=== PATIENT | male | born 1970 | race African-American/Black ===

== ENCOUNTER 2016-09-09 08:41 | Inpatient (IN) | payer OTHER ==
[~2016-09-09] VITALS: Ht 170.2 cm; Wt 80.7 kg
[~2016-09-09 08:41] MED LIST: ASPI81TA2 PO; ATOR20TA58 PO; HYDR25TA9 PO; NABU500T PO
[2016-09-09] MEDS ORDERED: IV NORMAL SALINE 1000ML BAG 1,000 ML IV SCH (09:23)
[2016-09-09] MEDS ORDERED: FENTANYL PF 100 MCG/2 ML VIAL. IV PRN (09:30)
[2016-09-09] MEDS ORDERED: ONDANSETRON PF 4 MG/2 ML VIAL. IV ONE (09:30)
[2016-09-09] MEDS ORDERED: FAMOTIDINE 20 MG/2 ML VIAL IVP ONE (09:30)
--- NOTE | 2016-09-09 09:38 | EKG ---
[facility] [address] [place] [address] Test Date: 2016-09-09 Test Time: 09:34:43 Pat Name: YESICA MOCTEZUMA Department: Room: Gender: M Project Portfolio Analyst: : 1970 Requested By: ESTHER JAMES Order Number: [id number] Reading MD: Tammy Gomez Measurements Intervals [place] Rate: 93 P: AR: QRS: 48 QRSD: 86 T: 26 QT: 360 QTc: 450 Interpretive Statements SINUS RHYTHM QRS(T) CONTOUR ABNORMALITY CONSIDER ANTEROLATERAL MYOCARDIAL DAMAGE Electronically Signed On 09-10-2016 20:17:12 CDT by Tammy Gomez
--- NOTE | 2016-09-09 09:54 | PHYS DOC ---
Past Medical History Past Medical History: High Cholesterol, Hypertension, Pancreatitis, Seizure, Other Additional Past Medical Histor: high cholesterol Past Surgical History: Cholecystectomy Alcohol Use: Heavy Additional Information: 6-12 per day Drug Use: None Adult General Chief Complaint Chief Complaint: ABDOMINAL PAIN HPI HPI Patient is a 46 year old male who presents with complaint of abdominal pain and vomiting that started yesterday. Patient states that his symptoms have progressively worsened since onset. Patient states that his pain is 10 out of 10 currently. Patient describes his pain as sharp. Patient has not been able to tolerate solids or liquids. Patient has history of pancreatitis. Patient had his gallbladder removed in 2014, however he has still had intermittent issues with pain. Patient does admit to daily alcohol use. When asked how much the patient drinks daily he states "too much." Patient has not taken any medications to help with his symptoms. Review of Systems Review of Systems Constitutional: Denies fever or chills [] Eyes: Denies change in visual acuity, redness, or eye pain [] HENT: Denies nasal congestion or sore throat [] Respiratory: Denies cough or shortness of breath [] Cardiovascular: Chest pain [] GI: Abdominal pain, nausea, vomiting, denies bloody stools or diarrhea [] : Denies dysuria or hematuria [] Musculoskeletal: Denies back pain or joint pain [] Integument: Denies rash or skin lesions [] Neurologic: Denies headache, focal weakness or sensory changes [] Current Medications Current Medications Current Medications Medications (Trade) Dose Ordered Sig/Phil Start Time Stop Time Status Last Admin Dose Admin Famotidine (Pepcid) 20 mg 1X ONCE 09/09/16 09:30 09/09/16 09:31 DC 09/09/16 09:56 20 MG Fentanyl Citrate 50 mcg 50 mcg PRN Q15MIN PRN 09/09/16 09:30 09/10/16 09:29 09/09/16 09:56 50 MCG Ondansetron HCl (Zofran) 4 mg 1X ONCE 09/09/16 09:30 09/09/16 09:31 DC 09/09/16 09:56 4 MG Sodium Chloride (Iv Sodium Chloride 0.9% 1000ml Bag) 1,000 ml @ 1,000 mls/hr Q1H 09/09/16 09:23 09/09/16 10:22 DC 09/09/16 09:57 1,000 MLS/HR Allergies Allergies Allergies Coded Allergies Type Severity Reaction Last Updated Verified No Known Drug Allergies 09/04/13 No Physical Exam Physical Exam Constitutional: Alert, afebrile, appears in mild to moderate discomfort. [] HENT: Normocephalic, atraumatic, bilateral external ears normal, oropharynx moist, no oral exudates, nose normal. [] Eyes: PERRLA, EOMI, conjunctiva normal, no discharge. [] Neck: Normal range of motion, no tenderness, supple, no stridor. [] Cardiovascular: Tachycardia, regular rhythm, no murmur [] Lungs & Thorax: Bilateral breath sounds clear to auscultation [] Abdomen: Bowel sounds normal, soft, epigastric tenderness to palpation with guarding, no rebound tenderness, no masses, no pulsatile masses. [] Skin: Warm, dry, no erythema, no rash. [] Back: No tenderness, no CVA tenderness. [] Extremities: No tenderness, no cyanosis, no clubbing, ROM intact, no edema. [] Neurologic: Alert and oriented X 3, normal motor function, normal sensory function, no focal deficits noted. [] Current Patient Data Vital Signs Vital Signs Date Time Temp Pulse Resp B/P Pulse Ox O2 Delivery O2 Flow Rate FiO2 09/09/16 11:00 104 16 181/116 99 Room Air 09/09/16 09:15 98.4 98.4 Lab Values Laboratory Tests Test 09/09/16 10:00 White Blood Count 5.5x10^3/uL (4.0-11.0) Red Blood Count 5.70x10^6/uL (4.30-5.70) Hemoglobin 15.7g/dL (13.0-17.5) Hematocrit 47.5% (39.0-53.0) Mean Corpuscular Volume 83fL (79-100) Mean Corpuscular Hemoglobin 28pg (25-35) Mean Corpuscular Hemoglobin Concent 33g/dL (31-37) Red Cell Distribution Width 15.5% (11.5-14.5) H Platelet Count 192x10^3/uL (140-400) Neutrophils (%) (Auto) 69% (31-73) Lymphocytes (%) (Auto) 23% (24-48) L Monocytes (%) (Auto) 7% (0-9) Eosinophils (%) (Auto) 0% (0-3) Basophils (%) (Auto) 1% (0-3) Neutrophils # (Auto) 3.8x10^3uL (1.8-7.7) Lymphocytes # (Auto) 1.2x10^3/uL (1.0-4.8) Monocytes # (Auto) 0.4x10^3/uL (0.0-1.1) Eosinophils # (Auto) 0.0x10^3/uL (0.0-0.7) Basophils # (Auto) 0.0x10^3/uL (0.0-0.2) Sodium Level 140mmol/L (136-145) Potassium Level 4.5mmol/L (3.5-5.1) Chloride Level 100mmol/L (98-107) Carbon Dioxide Level 28mmol/L (21-32) Anion Gap 12 (6-14) Blood Urea Nitrogen 12mg/dL (8-26) Creatinine 1.2mg/dL (0.7-1.3) Estimated GFR (Cockcroft-Gault) 79.6 BUN/Creatinine Ratio 10 (6-20) Glucose Level 131mg/dL (70-99) H Calcium Level 9.7mg/dL (8.5-10.1) Total Bilirubin 1.6mg/dL (0.2-1.0) H Aspartate Amino Transferase (AST) 413U/L (15-37) H Alanine Aminotransferase (ALT) 277U/L (16-63) H Alkaline Phosphatase 115U/L (46-116) Creatine Kinase 329U/L (39-308) H Creatine Kinase MB (Mass) 1.6ng/mL (0.0-3.6) Creatine Kinase MB Relative Index 0.5% (0-4) Troponin I Quantitative < 0.017ng/mL (0.000-0.055) Total Protein 8.0g/dL (6.4-8.2) Albumin 4.0g/dL (3.4-5.0) Albumin/Globulin Ratio 1.0 (1.0-1.7) Lipase 6127U/L (73-393) H Laboratory Tests 09/09/16 10:00 Laboratory Tests 09/09/16 10:00 EKG EKG Interpreted by me: Heart rate 93, sinus tachycardia, normal axis, normal intervals, no acute ST/T-wave abnormalities present [] Radiology/Procedures Radiology/Procedures [facility] [address] [place] [address] IMAGING REPORT Signed PATIENT: YESICA MOCTEZUMA ACCOUNT: [id number] : 1970 LOCATION: ER AGE: 46 SEX: M EXAM STATUS: REG ER ORD. PHYSICIAN: ESTHER JAMES MD REASON: abdominal pain, vomiting, patient states started yesterday PROCEDURE: ACUTE ABDOMEN SERIES Acute abdomen series with chest, 3 views, 09/09/2016: History: Abdominal pain and vomiting The abdominal gas pattern is unremarkable without evidence of obstruction. No free air is seen in the abdomen. There is no evidence of organomegaly. Surgical clips are present in the right upper quadrant. Lower pelvic calcifications are compatible with phleboliths. The heart size is normal. The lungs are clear. There is no evidence of pleural fluid. IMPRESSION: No acute abdominal abnormality is detected. DICTATED and SIGNED BY: KRISTAN LOPEZ MD DATE: 09/09/16 1000 CC: ESTHER JAMES MD; NO PCP ~ [] Course & Med Decision Making Course & Med Decision Making Pertinent Labs and Imaging studies reviewed. (See chart for details) Patient was given IV fluids, fentanyl, Pepcid, and Zofran. Despite treatment, the patient continues to complain of severe pain at this time. The patient's lipase was found to be above 6000. The patient's source of pancreatitis is likely due to daily heavy alcohol consumption which the patient admitted to. The patient will be admitted for IV fluids, symptomatic control, and bowel rest. Patient admitted to Dr. Kearns. Dragon Disclaimer Dragon Disclaimer This electronic medical record was generated, in whole or in part, using a voice recognition dictation system. Departure Departure Impression: Primary Impression: Acute pancreatitis Disposition: ADMITTED INPATIENT Admitting Physician: Jostin Kearns Condition: GUARDED Referrals: NO PCP (PCP) Problem Qualifiers Primary Impression: Acute pancreatitis Pancreatitis type: alcohol induced Acute pancreatitis complication: unspecified Qualified Code: K85.20 - Alcohol induced acute pancreatitis without necrosis or infection ESTHER JAMES MD Sep 09, 2016 09:54
--- NOTE | 2016-09-09 10:04 | RAD ---
Acute abdomen series with chest, 3 views, 09/09/2016: History: Abdominal pain and vomiting The abdominal gas pattern is unremarkable without evidence of obstruction. No free air is seen in the abdomen. There is no evidence of organomegaly. Surgical clips are present in the right upper quadrant. Lower pelvic calcifications are compatible with phleboliths. The heart size is normal. The lungs are clear. There is no evidence of pleural fluid. IMPRESSION: No acute abdominal abnormality is detected.
[2016-09-09 10:07] LABS: BASO % 1 % (0-3); EOS % 0 % (0-3); HEMATOCRIT 47.5 % (39.0-53.0); HEMOGLOBIN 15.7 g/dL (13.0-17.5); LYMPH # 1.2 x10^3/uL (1.0-4.8); LYMPH % 23 % (24-48); MEAN CORPUSCULAR HEMOGLOBIN 28 pg (25-35); MEAN CORPUSCULAR HGB CONC 33 g/dL (31-37); MEAN CORPUSCULAR VOLUME 83 fL (79-100); MONO % 7 % (0-9); NEUT % 69 % (31-73); PLATELET COUNT 192 x10^3/uL (140-400); RED CELL DISTRIBUTION WIDTH 15.5 % (11.5-14.5); WHITE BLOOD COUNT 5.5 x10^3/uL (4.0-11.0)
[2016-09-09 10:23] LABS: CALCIUM 9.7 mg/dL (8.5-10.1); CREATININE 1.2 mg/dL (0.7-1.3); GFR 79.6; POTASSIUM 4.5 mmol/L (3.5-5.1)
[2016-09-09 10:30] LABS: TOTAL BILIRUBIN 1.6 mg/dL (0.2-1.0)
[2016-09-09 10:37] LABS: CKMB INDEX 0.5 % (0-4); CKMB MASS 1.6 ng/mL (0.0-3.6)
[2016-09-09] MEDS ORDERED: ACETAMINOPHEN 325 MG TABLET. PO PRN ×2 (12:00→16:00)
[2016-09-09] MEDS ORDERED: ONDANSETRON PF 4 MG/2 ML VIAL. IV PRN ×2 (12:00→16:00)
[2016-09-09] MEDS: LORAZEPAM 1 MG TABLET. PO SCH ×2 (12:00→17:18)
[2016-09-09] MEDS: HYDROMORPHONE 2 MG/ML VIAL. IV PRN ×3 (12:09→19:39)
[2016-09-09] MEDS: IV NORMAL SALINE 1000ML BAG 1,000 ML IV SCH ×2 (12:10→19:39)
[2016-09-09 12:16] LABS: BILIRUBIN,URINE SMALL (NEG); GLUCOSE,URINE NEGATIVE (NEG); NITRITE,URINE NEGATIVE (NEG); PH,URINE 5.5
[2016-09-09 12:31] LABS: BACTERIA,URINE 0 /HPF (0-FEW); RBC,URINE 0 /HPF (0-2); SQUAMOUS EPITHELIAL CELL,UR FEW /LPF; WBC,URINE 0 /HPF (0-4)
[2016-09-09] MEDS: FOLIC ACID 1 MG TABLET PO SCH (13:00)
[2016-09-09] MEDS: THIAMINE 100 MG TABLET. PO SCH (13:00)
[2016-09-09] MEDS: MULTIVITAMIN with MINERAL TABLET. PO SCH (13:00)
--- NOTE | 2016-09-09 13:02 | ACF ---
Admission Forms Criteria PANCREATITIS Clinical Indications for Admission to Inpatient Care (Place 'X' for any and all applicable criteria): Admission is indicated for ANY ONE of the following (1)(2)(3)(4): [X]I. Acute pancreatitis[A] as indicated by 2 or more of the following: [X]a) Abdominal pain (eg, epigastric, left upper quadrant) [X]b) Serum amylase or serum lipase greater than 3 times the upper limit of normal [ ]c) Characteristic findings from abdominal imaging (eg, pancreatic inflammation, pancreatic necrosis, peripancreatic fluid collection)[B] [ ]II. Pancreatitis (acute or chronic ) requiring inpatient care as indicated by 1 or more of the following : [ ]a) Inability to maintain oral hydration Hypoxemia [ ]b) Evidence of infection (eg, fever, peripancreatic abscess) [ ]c) Severe pain requiring acute inpatient management [ ]d) Hemodynamic instability [ ]e) Hypoxemia [ ]f) Acute renal failure [ ]g) Severe electrolyte abnormalities Extended stay beyond goal length of stay may be needed for (1)(11) [ ]a) Severe acute pancreatitis (10)(19) [ ]b) Persistent symptoms, ascites, or pleural effusion [ ]c) Abdominal compartment syndrome (10) [ ]d) Late complications [ ]e) Acute renal failure (27) [ ]f) Gallstones in gallbladder The original [employer] content created by [employer] has been revised. The portions of the content which have been revised are identified through the use of italic text or in bold,and [facility] has neither reviewed nor approved the modified material.All other unmodified content is copyright [employer]. Please see references footnoted in the original [employer] edition 2016 Admission Criteria Met?: Yes PHILIPP ACEVES Sep 09, 2016 13:02
[2016-09-09 14:10] VITALS: BP 144/97
[2016-09-09] MEDS ORDERED: hydrALAZINE 20 MG/ML VIAL. IVP PRN (16:00)
[2016-09-09] MEDS ORDERED: ALBUTEROL SULFATE 2.5 MG/3 ML NEBU. NEB PRN (16:00)
--- NOTE | 2016-09-09 16:14 | PDOC1 ---
History and Physical Past Medical History Past Medical History Past Medical History: High Cholesterol, Hypertension, Pancreatitis, Seizure, high cholesterol Past Surgical History: Cholecystectomy Alcohol Use: Heavy Additional Information: 6-12 per day Drug Use: None FH: Unknown Cardiovascular: HTN, Hyperlipidemia Pulmonary: No pertinent hx GI: No pertinent hx Heme/Onc: No pertinent hx Hepatobiliary: No pertinent hx Psych: No pertinent hx Rheumatologic: No pertinent hx Infectious disease: No pertinent hx Endocrine: No pertinent hx Past Surgical History Past Surgical History: No pertinent history Family History Family History: Other Social History ALCOHOL: social Drugs: None Current Problem List Problem List Problems Medical Problems: (1) Acute pancreatitis Status: Acute (2) Pancreatitis Status: Acute Current Medications Current Medications Current Medications Medications (Trade) Dose Ordered Sig/Phil Start Time Stop Time Status Last Admin Dose Admin Acetaminophen (Tylenol) 325 mg PRN Q6HRS PRN 09/09/16 16:00 Acetaminophen/ Hydrocodone Bitart (Lortab 5/325) 1 tab PRN Q6HRS PRN 09/09/16 16:00 Albuterol Sulfate (Ventolin Neb Soln) 2.5 mg PRN Q4HRS PRN 09/09/16 16:00 Famotidine (Pepcid) 20 mg 1X ONCE 09/09/16 09:30 09/09/16 09:31 DC 09/09/16 09:56 20 MG Fentanyl Citrate (Fentanyl 2ml Vial) 50 mcg PRN Q15MIN PRN 09/09/16 09:30 09/10/16 09:29 09/09/16 09:56 50 MCG Folic Acid (Folic Acid) 1 mg DAILY 09/09/16 13:00 Hydralazine HCl (Apresoline) 10 mg PRN Q4HRS PRN 09/09/16 16:00 Hydromorphone HCl (Dilaudid) 1 mg PRN Q2HR PRN 09/09/16 12:00 09/09/16 14:43 1 MG Lorazepam (Ativan) 2 mg Q6H 09/09/16 12:00 09/10/16 18:01 Multivitamins (Thera M Plus) 1 tab DAILY 09/09/16 13:00 Ondansetron HCl (Zofran) 4 mg PRN Q8HRS PRN 09/09/16 16:00 Ondansetron HCl 4 mg 4 mg PRN Q8HRS PRN 09/09/16 12:00 Sodium Chloride (Iv Sodium Chloride 0.9% 1000ml Bag) 1,000 ml @ 150 mls/hr Q6H40M 09/09/16 12:30 09/10/16 12:29 09/09/16 12:10 150 MLS/HR Thiamine HCl (Vitamin B-1) 100 mg DAILY 09/09/16 13:00 Allergies Allergies Allergies Coded Allergies Type Severity Reaction Last Updated Verified No Known Drug Allergies 09/04/13 No ROS Review of System CONSTITUTIONAL: No fever or chills EYES: No recent changes SKIN: No rash or itching CARDIOVASCULAR: No chest pain, syncope, palpitations, or edema RESPIRATORY: No SOB or cough GASTROINTESTINAL: nausea, vomiting or abdominal pain NEUROLOGICAL: No headaches or weakness ENDOCRINE: No cold or heat intolerance GENITOURINARY: No urgency or frequency of urination MUSCULOSKELETAL: No back pain or joint pain LYMPHATICS: No enlarged lymph nodes PSYCHIATRIC: No anxiety or depression Physical Exam Physical Exam GEN.: No apparent distress. Alert and oriented. HEENT: Head is normocephalic, atraumatic NECK: Supple. no jvd LUNGS: Clear to auscultation. normal airflow HEART: RRR, S1, S2 present. Peripheral pulses intact ABDOMEN: Soft, epi tender. Positive bowel sounds. EXTREMITIES: Without any cyanosis. NEUROLOGIC: Normal speech, normal tone PSYCHIATRIC: Normal affect, normal mood. SKIN: No ulcerations Vitals Vitals Vital Signs Date Time Temp Pulse Resp B/P Pulse Ox O2 Delivery O2 Flow Rate FiO2 09/09/16 15:13 Room Air 09/09/16 14:10 98.1 85 20 144/97 96 98.1 Labs Labs Laboratory Tests Test 09/09/16 10:00 09/09/16 11:55 White Blood Count 5.5x10^3/uL (4.0-11.0) Red Blood Count 5.70x10^6/uL (4.30-5.70) Hemoglobin 15.7g/dL (13.0-17.5) Hematocrit 47.5% (39.0-53.0) Mean Corpuscular Volume 83fL (79-100) Mean Corpuscular Hemoglobin 28pg (25-35) Mean Corpuscular Hemoglobin Concent 33g/dL (31-37) Red Cell Distribution Width 15.5% (11.5-14.5) Platelet Count 192x10^3/uL (140-400) Neutrophils (%) (Auto) 69% (31-73) Lymphocytes (%) (Auto) 23% (24-48) Monocytes (%) (Auto) 7% (0-9) Eosinophils (%) (Auto) 0% (0-3) Basophils (%) (Auto) 1% (0-3) Neutrophils # (Auto) 3.8x10^3uL (1.8-7.7) Lymphocytes # (Auto) 1.2x10^3/uL (1.0-4.8) Monocytes # (Auto) 0.4x10^3/uL (0.0-1.1) Eosinophils # (Auto) 0.0x10^3/uL (0.0-0.7) Basophils # (Auto) 0.0x10^3/uL (0.0-0.2) Sodium Level 140mmol/L (136-145) Potassium Level 4.5mmol/L (3.5-5.1) Chloride Level 100mmol/L (98-107) Carbon Dioxide Level 28mmol/L (21-32) Anion Gap 12 (6-14) Blood Urea Nitrogen 12mg/dL (8-26) Creatinine 1.2mg/dL (0.7-1.3) Estimated GFR (Cockcroft-Gault) 79.6 BUN/Creatinine Ratio 10 (6-20) Glucose Level 131mg/dL (70-99) Calcium Level 9.7mg/dL (8.5-10.1) Total Bilirubin 1.6mg/dL (0.2-1.0) Aspartate Amino Transf (AST/SGOT) 413U/L (15-37) Alanine Aminotransferase (ALT/SGPT) 277U/L (16-63) Alkaline Phosphatase 115U/L (46-116) Creatine Kinase 329U/L (39-308) Creatine Kinase MB (Mass) 1.6ng/mL (0.0-3.6) Creatine Kinase MB Relative Index 0.5% (0-4) Troponin I Quantitative < 0.017ng/mL (0.000-0.055) Total Protein 8.0g/dL (6.4-8.2) Albumin 4.0g/dL (3.4-5.0) Albumin/Globulin Ratio 1.0 (1.0-1.7) Lipase 6127U/L (73-393) Urine Collection Type Unknown Urine Color [place] Urine Clarity Clear Urine pH 5.5 Urine Specific [place] >=1.030 Urine Protein mg/dL (NEG-TRACE) Urine Glucose (UA) Negativemg/dL (NEG) Urine Ketones (Stick) >=80mg/dL (NEG) Urine Blood (NEG) Urine Nitrite Negative (NEG) Urine Bilirubin Small (NEG) Urine Urobilinogen Dipstick 1.0mg/dL (0.2 mg/dL) Urine Leukocyte Esterase Negative (NEG) Urine RBC 0/HPF (0-2) Urine WBC 0/HPF (0-4) Urine Squamous Epithelial Cells Few/LPF Urine Bacteria 0/HPF (0-FEW) Urine Mucus Marked/LPF Laboratory Tests Test 09/09/16 10:00 09/09/16 11:55 White Blood Count 5.5x10^3/uL (4.0-11.0) Red Blood Count 5.70x10^6/uL (4.30-5.70) Hemoglobin 15.7g/dL (13.0-17.5) Hematocrit 47.5% (39.0-53.0) Mean Corpuscular Volume 83fL (79-100) Mean Corpuscular Hemoglobin 28pg (25-35) Mean Corpuscular Hemoglobin Concent 33g/dL (31-37) Red Cell Distribution Width 15.5% (11.5-14.5) Platelet Count 192x10^3/uL (140-400) Neutrophils (%) (Auto) 69% (31-73) Lymphocytes (%) (Auto) 23% (24-48) Monocytes (%) (Auto) 7% (0-9) Eosinophils (%) (Auto) 0% (0-3) Basophils (%) (Auto) 1% (0-3) Neutrophils # (Auto) 3.8x10^3uL (1.8-7.7) Lymphocytes # (Auto) 1.2x10^3/uL (1.0-4.8) Monocytes # (Auto) 0.4x10^3/uL (0.0-1.1) Eosinophils # (Auto) 0.0x10^3/uL (0.0-0.7) Basophils # (Auto) 0.0x10^3/uL (0.0-0.2) Sodium Level 140mmol/L (136-145) Potassium Level 4.5mmol/L (3.5-5.1) Chloride Level 100mmol/L (98-107) Carbon Dioxide Level 28mmol/L (21-32) Anion Gap 12 (6-14) Blood Urea Nitrogen 12mg/dL (8-26) Creatinine 1.2mg/dL (0.7-1.3) Estimated GFR (Cockcroft-Gault) 79.6 BUN/Creatinine Ratio 10 (6-20) Glucose Level 131mg/dL (70-99) Calcium Level 9.7mg/dL (8.5-10.1) Total Bilirubin 1.6mg/dL (0.2-1.0) Aspartate Amino Transf (AST/SGOT) 413U/L (15-37) Alanine Aminotransferase (ALT/SGPT) 277U/L (16-63) Alkaline Phosphatase 115U/L (46-116) Creatine Kinase 329U/L (39-308) Creatine Kinase MB (Mass) 1.6ng/mL (0.0-3.6) Creatine Kinase MB Relative Index 0.5% (0-4) Troponin I Quantitative < 0.017ng/mL (0.000-0.055) Total Protein 8.0g/dL (6.4-8.2) Albumin 4.0g/dL (3.4-5.0) Albumin/Globulin Ratio 1.0 (1.0-1.7) Lipase 6127U/L (73-393) Urine Collection Type Unknown Urine Color [place] Urine Clarity Clear Urine pH 5.5 Urine Specific [place] >=1.030 Urine Protein mg/dL (NEG-TRACE) Urine Glucose (UA) Negativemg/dL (NEG) Urine Ketones (Stick) >=80mg/dL (NEG) Urine Blood (NEG) Urine Nitrite Negative (NEG) Urine Bilirubin Small (NEG) Urine Urobilinogen Dipstick 1.0mg/dL (0.2 mg/dL) Urine Leukocyte Esterase Negative (NEG) Urine RBC 0/HPF (0-2) Urine WBC 0/HPF (0-4) Urine Squamous Epithelial Cells Few/LPF Urine Bacteria 0/HPF (0-FEW) Urine Mucus Marked/LPF VTE Prophylaxis Ordered VTE Prophylaxis Devices: No VTE Pharmacological Prophylaxi: No SAMEER REYES MD Sep 09, 2016 16:14
[2016-09-09] MEDS: METOPROLOL TARTRATE 5 MG/5 ML VIAL. IVP SCH (17:20)
--- NOTE | 2016-09-09 17:59 | PDOC ---
G I PROGRESS NOTE Reason for Follow-up abd pain/pancreatitis Subjective pain improving/increasing appetite Physical Exam Lungs clear CV S1 S2 ABD +BS, soft, +epigastric tenderness Review of Relevant I have reviewed the following items jey (where applicable) has been applied. Labs Laboratory Tests Test 09/09/16 10:00 09/09/16 11:55 White Blood Count 5.5x10^3/uL (4.0-11.0) Red Blood Count 5.70x10^6/uL (4.30-5.70) Hemoglobin 15.7g/dL (13.0-17.5) Hematocrit 47.5% (39.0-53.0) Mean Corpuscular Volume 83fL (79-100) Mean Corpuscular Hemoglobin 28pg (25-35) Mean Corpuscular Hemoglobin Concent 33g/dL (31-37) Red Cell Distribution Width 15.5% (11.5-14.5) Platelet Count 192x10^3/uL (140-400) Neutrophils (%) (Auto) 69% (31-73) Lymphocytes (%) (Auto) 23% (24-48) Monocytes (%) (Auto) 7% (0-9) Eosinophils (%) (Auto) 0% (0-3) Basophils (%) (Auto) 1% (0-3) Neutrophils # (Auto) 3.8x10^3uL (1.8-7.7) Lymphocytes # (Auto) 1.2x10^3/uL (1.0-4.8) Monocytes # (Auto) 0.4x10^3/uL (0.0-1.1) Eosinophils # (Auto) 0.0x10^3/uL (0.0-0.7) Basophils # (Auto) 0.0x10^3/uL (0.0-0.2) Sodium Level 140mmol/L (136-145) Potassium Level 4.5mmol/L (3.5-5.1) Chloride Level 100mmol/L (98-107) Carbon Dioxide Level 28mmol/L (21-32) Anion Gap 12 (6-14) Blood Urea Nitrogen 12mg/dL (8-26) Creatinine 1.2mg/dL (0.7-1.3) Estimated GFR (Cockcroft-Gault) 79.6 BUN/Creatinine Ratio 10 (6-20) Glucose Level 131mg/dL (70-99) Calcium Level 9.7mg/dL (8.5-10.1) Total Bilirubin 1.6mg/dL (0.2-1.0) Aspartate Amino Transf (AST/SGOT) 413U/L (15-37) Alanine Aminotransferase (ALT/SGPT) 277U/L (16-63) Alkaline Phosphatase 115U/L (46-116) Creatine Kinase 329U/L (39-308) Creatine Kinase MB (Mass) 1.6ng/mL (0.0-3.6) Creatine Kinase MB Relative Index 0.5% (0-4) Troponin I Quantitative < 0.017ng/mL (0.000-0.055) Total Protein 8.0g/dL (6.4-8.2) Albumin 4.0g/dL (3.4-5.0) Albumin/Globulin Ratio 1.0 (1.0-1.7) Lipase 6127U/L (73-393) Urine Collection Type Unknown Urine Color Logan Urine Clarity Clear Urine pH 5.5 Urine Specific Costa >=1.030 Urine Protein mg/dL (NEG-TRACE) Urine Glucose (UA) Negativemg/dL (NEG) Urine Ketones (Stick) >=80mg/dL (NEG) Urine Blood (NEG) Urine Nitrite Negative (NEG) Urine Bilirubin Small (NEG) Urine Urobilinogen Dipstick 1.0mg/dL (0.2 mg/dL) Urine Leukocyte Esterase Negative (NEG) Urine RBC 0/HPF (0-2) Urine WBC 0/HPF (0-4) Urine Squamous Epithelial Cells Few/LPF Urine Bacteria 0/HPF (0-FEW) Urine Mucus Marked/LPF Laboratory Tests Test 09/09/16 10:00 09/09/16 11:55 White Blood Count 5.5x10^3/uL (4.0-11.0) Red Blood Count 5.70x10^6/uL (4.30-5.70) Hemoglobin 15.7g/dL (13.0-17.5) Hematocrit 47.5% (39.0-53.0) Mean Corpuscular Volume 83fL (79-100) Mean Corpuscular Hemoglobin 28pg (25-35) Mean Corpuscular Hemoglobin Concent 33g/dL (31-37) Red Cell Distribution Width 15.5% (11.5-14.5) Platelet Count 192x10^3/uL (140-400) Neutrophils (%) (Auto) 69% (31-73) Lymphocytes (%) (Auto) 23% (24-48) Monocytes (%) (Auto) 7% (0-9) Eosinophils (%) (Auto) 0% (0-3) Basophils (%) (Auto) 1% (0-3) Neutrophils # (Auto) 3.8x10^3uL (1.8-7.7) Lymphocytes # (Auto) 1.2x10^3/uL (1.0-4.8) Monocytes # (Auto) 0.4x10^3/uL (0.0-1.1) Eosinophils # (Auto) 0.0x10^3/uL (0.0-0.7) Basophils # (Auto) 0.0x10^3/uL (0.0-0.2) Sodium Level 140mmol/L (136-145) Potassium Level 4.5mmol/L (3.5-5.1) Chloride Level 100mmol/L (98-107) Carbon Dioxide Level 28mmol/L (21-32) Anion Gap 12 (6-14) Blood Urea Nitrogen 12mg/dL (8-26) Creatinine 1.2mg/dL (0.7-1.3) Estimated GFR (Cockcroft-Gault) 79.6 BUN/Creatinine Ratio 10 (6-20) Glucose Level 131mg/dL (70-99) Calcium Level 9.7mg/dL (8.5-10.1) Total Bilirubin 1.6mg/dL (0.2-1.0) Aspartate Amino Transf (AST/SGOT) 413U/L (15-37) Alanine Aminotransferase (ALT/SGPT) 277U/L (16-63) Alkaline Phosphatase 115U/L (46-116) Creatine Kinase 329U/L (39-308) Creatine Kinase MB (Mass) 1.6ng/mL (0.0-3.6) Creatine Kinase MB Relative Index 0.5% (0-4) Troponin I Quantitative < 0.017ng/mL (0.000-0.055) Total Protein 8.0g/dL (6.4-8.2) Albumin 4.0g/dL (3.4-5.0) Albumin/Globulin Ratio 1.0 (1.0-1.7) Lipase 6127U/L (73-393) Urine Collection Type Unknown Urine Color Logan Urine Clarity Clear Urine pH 5.5 Urine Specific Costa >=1.030 Urine Protein mg/dL (NEG-TRACE) Urine Glucose (UA) Negativemg/dL (NEG) Urine Ketones (Stick) >=80mg/dL (NEG) Urine Blood (NEG) Urine Nitrite Negative (NEG) Urine Bilirubin Small (NEG) Urine Urobilinogen Dipstick 1.0mg/dL (0.2 mg/dL) Urine Leukocyte Esterase Negative (NEG) Urine RBC 0/HPF (0-2) Urine WBC 0/HPF (0-4) Urine Squamous Epithelial Cells Few/LPF Urine Bacteria 0/HPF (0-FEW) Urine Mucus Marked/LPF Medications Current Medications Fentanyl Citrate 50 mcg 50 mcg PRN Q15MIN PRN IV PAIN GREATER THAN 3/10 Last administered on 09/09/16 09:56; Start 09/09/16 at 09:30; Stop 09/09/16 at 16:21 ; Status DC Sodium Chloride (Iv Sodium Chloride 0.9% 1000ml Bag) 1,000 ml @ 1,000 mls/hr Q1H IV Last administered on 09/09/16 09:57; Start 09/09/16 at 09:23; Stop at 10:22; Status DC Ondansetron HCl (Zofran) 4 mg 1X ONCE IV Last administered on 09/09/16 09:56 ; Start 09/09/16 at 09:30; Stop 09/09/16 at 09:31; Status DC Famotidine (Pepcid) 20 mg 1X ONCE IVP Last administered on 09/09/16 09:56; Start 09/09/16 at 09:30; Stop 09/09/16 at 09:31; Status DC Hydromorphone HCl (Dilaudid) 1 mg PRN Q2HR PRN IV PAIN Last administered on 14:43; Start 09/09/16 at 12:00 Ondansetron HCl 4 mg 4 mg PRN Q8HRS PRN IV NAUSEA/VOMITING; Start 09/09/16 at 12:00 Sodium Chloride (Iv Sodium Chloride 0.9% 1000ml Bag) 1,000 ml @ 150 mls/hr Q6H40M IV Last administered on 09/09/16t 12:10; Start 09/09/16 at 12:30; Stop 09/10/16 at 12:29 Acetaminophen (Tylenol) 650 mg PRN Q4HRS PRN PO FEVER; Start 09/09/16 at 12:00 ; Stop 09/10/16 at 11:59 Multivitamins (Thera M Plus) 1 tab DAILY PO ; Start 09/09/16 at 13:00 Folic Acid (Folic Acid) 1 mg DAILY PO ; Start 09/09/16 at 13:00 Lorazepam (Ativan) 2 mg Q6H PO ; Start 09/09/16 at 12:00; Stop 09/10/16 at 18:01 Thiamine HCl (Vitamin B-1) 100 mg DAILY PO ; Start 09/09/16 at 13:00 Acetaminophen (Tylenol) 325 mg PRN Q6HRS PRN PO MILD PAIN / TEMP; Start at 16:00 Acetaminophen/ Hydrocodone Bitart (Lortab 5/325) 1 tab PRN Q6HRS PRN PO MODERATE TO SEVERE PAIN; Start 09/09/16 at 16:00 Hydralazine HCl (Apresoline) 10 mg PRN Q4HRS PRN IVP ELEVATED BP, SEE COMMENTS ; Start 09/09/16 at 16:00 Ondansetron HCl (Zofran) 4 mg PRN Q8HRS PRN IV NAUSEA/VOMITING; Start 09/09/16 at 16:00 Albuterol Sulfate (Ventolin Neb Soln) 2.5 mg PRN Q4HRS PRN NEB SHORTNESS OF BREATH; Start 09/09/16 at 16:00 Metoprolol Tartrate (Lopressor) 5 mg Q6HRS IVP Last administered on 09/09/16t 17:20; Start 09/09/16 at 17:00 Active Scripts Active Reported Nabumetone 500 Mg Tablet 500 Mg PO DAILY Aspirin 81 Mg Tab.chew 81 Mg PO DAILY Hydrochlorothiazide Tablet (Hydrochlorothiazide) 25 Mg Tablet 25 Mg PO DAILY Atorvastatin Calcium 20 Mg Tablet 1 Tab PO DAILY Vitals/I & O Vital Sign - Last 24 Hours 09/09/16 09/09/16 09/09/16 09/09/16 09:15 09:56 10:03 10:30 Temp 98.4 98.4 Pulse 91 100 Resp B/P 155/108 164/113 Pulse Ox 99 100 O2 Delivery Room Air Room Air 09/09/16 09/09/16 09/09/16 09/09/16 11:00 12:00 12:09 13:19 Pulse 104 88 Resp B/P 181/116 171/111 Pulse Ox 99 99 O2 Delivery Room Air Room Air 09/09/16 09/09/16 09/09/16 09/09/16 13:33 14:10 14:10 14:43 Temp 98.1 98.1 98.1 98.1 Pulse 88 85 85 Resp 18 20 20 B/P 144/99 144/97 144/97 Pulse Ox 99 96 96 O2 Delivery Room Air Room Air Room Air Room Air 09/09/16 09/09/16 09/09/16 14:56 15:13 17:20 Pulse 85 B/P 144/97 O2 Delivery Room Air Room Air Problem List Problems Medical Problems: (1) Acute pancreatitis Status: Acute (2) Pancreatitis Status: Acute Assessment Acute pancreatitis- S/P domingo,.most likely secondary to ETOH use, medical therapy, advance diet as tolerated, will reassess Monday ELLEN SCHULTE MD Sep 09, 2016 17:59
[2016-09-09 19:00] VITALS: BP 120/80
--- NOTE | 2016-09-09 19:11 | HP ---
ADMIT DATE: 09/09/2016 CHIEF COMPLAINT: Abdominal pain. HISTORY OF PRESENT ILLNESS: A 46-year-old -[place] male patient with prior history of cholecystectomy and pancreatitis, presented to the ER with complaints of abdominal pain, nausea, vomiting for nearly 4-5 days. The abdominal pain is in epigastric and now it is all over the abdomen and sometimes going to his back. He described it as a sharp and 10/10. Denies any fever or chills; however, his nausea and vomiting is intractable in nature. He could not able to eat any food for 2 days. The patient had history of gallbladder problems in the past and his gallbladder was removed. He denies any regular intake of alcohol. REVIEW OF SYSTEMS: CONSTITUTIONAL: No fever or chills. EYES: No recent vision changes. SKIN: No rash or itching. CARDIOVASCULAR: No chest pain, syncope, palpitations or edema. RESPIRATORY: No shortness of breath, cough. GASTROINTESTINAL: No nausea, vomiting, diarrhea or abdominal pain. NEUROLOGICAL: No headache, paralysis. ENDOCRINOLOGIC: No cold or heat intolerance. GENITOURINARY: No burning with urination, no urgency. MUSCULOSKELETAL: No back pain or joint pain. LYMPHATICS: No enlarged nodes. PSYCHIATRIC: No anxiety or depression. LABORATORY DATA: Sodium 140, potassium 4.5, chloride is 100, carbon dioxide 28, gap is 12, BUN is 12, creatinine is 1.2, glucose is 131, total bilirubin 1.6. AST is 413, ALT 277. CPK is 329, lipase is 6127. WBC is 5.5, hemoglobin is 15.7, MCV 83, platelets 192. Urine clarity is clear, pH is 5.5, specific gravity more than 1.03. Protein negative, nitrites negative, bilirubin small, leukocyte esterase negative. IMAGING STUDIES: Acute abdominal series, no acute abnormalities seen. ASSESSMENT: 1. [id number] pancreatitis. 2. Hypertension. 3. Hyperlipidemia. PLAN: 1. Admit the patient to inpatient. N.p.o. IV fluids 150 mL per hour. Pain control with IV Dilaudid. Avoid CO2 narcosis. 2. Alcohol withdrawal prevention. Currently, the patient is on banana bag. 3. Monitor lipase in a.m. 4. Resume home medications, p.r.n. hydralazine for systolic blood pressure more than 160. 5. Prognosis is guarded. SAMEER REYES MD DR: Malena JOB#: [id number] / [id number] MAXINE
[2016-09-09] MEDS: HYDROCODONE/APAP 5/325MG TABLET. PO PRN (22:56)
[2016-09-09 23:00] VITALS: BP 122/89
[2016-09-10] VITALS (7 sets, daily range): BP systolic 111–137; BP diastolic 77–92
[2016-09-10] MEDS: LORAZEPAM 1 MG TABLET. PO SCH ×4 (00:20→18:58)
[2016-09-10] MEDS: METOPROLOL TARTRATE 5 MG/5 ML VIAL. IVP SCH ×3 (00:21→12:38)
[2016-09-10] MEDS: IV NORMAL SALINE 1000ML BAG 1,000 ML IV SCH ×2 (01:56→09:10)
[2016-09-10 05:25] LABS: BASO % 0 % (0-3); EOS % 1 % (0-3); HEMATOCRIT 38.7 % (39.0-53.0); HEMOGLOBIN 12.7 g/dL (13.0-17.5); LYMPH # 1.9 x10^3/uL (1.0-4.8); LYMPH % 27 % (24-48); MEAN CORPUSCULAR HEMOGLOBIN 28 pg (25-35); MEAN CORPUSCULAR HGB CONC 33 g/dL (31-37); MEAN CORPUSCULAR VOLUME 84 fL (79-100); MONO % 7 % (0-9); NEUT % 65 % (31-73); PLATELET COUNT 145 x10^3/uL (140-400); RED BLOOD COUNT 4.62 x10^6/uL (4.30-5.70); RED CELL DISTRIBUTION WIDTH 15.3 % (11.5-14.5); WHITE BLOOD COUNT 6.8 x10^3/uL (4.0-11.0)
[2016-09-10 05:57] LABS: CALCIUM 7.7 mg/dL (8.5-10.1); CREATININE 1.1 mg/dL (0.7-1.3); POTASSIUM 3.5 mmol/L (3.5-5.1)
[2016-09-10] MEDS: HYDROCODONE/APAP 5/325MG TABLET. PO PRN ×3 (06:29→18:58)
[2016-09-10] MEDS: FOLIC ACID 1 MG TABLET PO SCH (09:09)
[2016-09-10] MEDS: THIAMINE 100 MG TABLET. PO SCH (09:09)
[2016-09-10] MEDS: MULTIVITAMIN with MINERAL TABLET. PO SCH (09:09)
--- NOTE | 2016-09-10 14:38 | PDOC ---
PROGRESS NOTES Chief Complaint Chief Complaint Acute pancreatitis ASSESSMENT AND PLAN: 1. Pancreatitis: acute on chronic, EtOH induced. lipase marginally improved , but clinically improving, tolerating food 2. Hypocalcemia: significant drop since admit, but poss 2/2 previous hemoconcentration/now post rehydration. monitor closely. 3. Anemia: significant drop since admit. See (2.) 4. EtOH abuse: W/D prevention, PO vitamins 5. Hepatitis: improving. c/w EtOH abuse. monitor 6. Hypertension: by report, but no home meds and nl BPs here. monitor. 7. Pain control: adequate with PO meds 8. Hyperlipidemia: on statin 9. Prophylaxis: PPI Vitals Vitals Vital Signs Date Time Temp Pulse Resp B/P Pulse Ox O2 Delivery O2 Flow Rate FiO2 09/10/16 12:38 93 123/86 09/10/16 11:00 98.6 14 100 Room Air 98.6 Physical Exam General: Alert, Oriented X3, Cooperative, No acute distress Heart: Regular rate Lungs: Clear Abdomen: Normal bowel sounds, Other (mild midabd TTP) Extremities: No edema Skin: No rashes Labs LABS Laboratory Tests Test 09/10/16 04:30 White Blood Count 6.8x10^3/uL (4.0-11.0) Red Blood Count 4.62x10^6/uL (4.30-5.70) Hemoglobin 12.7g/dL (13.0-17.5) Hematocrit 38.7% (39.0-53.0) Mean Corpuscular Volume 84fL (79-100) Mean Corpuscular Hemoglobin 28pg (25-35) Mean Corpuscular Hemoglobin Concent 33g/dL (31-37) Red Cell Distribution Width 15.3% (11.5-14.5) Platelet Count 145x10^3/uL (140-400) Neutrophils (%) (Auto) 65% (31-73) Lymphocytes (%) (Auto) 27% (24-48) Monocytes (%) (Auto) 7% (0-9) Eosinophils (%) (Auto) 1% (0-3) Basophils (%) (Auto) 0% (0-3) Neutrophils # (Auto) 4.5x10^3uL (1.8-7.7) Lymphocytes # (Auto) 1.9x10^3/uL (1.0-4.8) Monocytes # (Auto) 0.5x10^3/uL (0.0-1.1) Eosinophils # (Auto) 0.0x10^3/uL (0.0-0.7) Basophils # (Auto) 0.0x10^3/uL (0.0-0.2) Sodium Level 137mmol/L (136-145) Potassium Level 3.5mmol/L (3.5-5.1) Chloride Level 102mmol/L (98-107) Carbon Dioxide Level 27mmol/L (21-32) Anion Gap 8 (6-14) Blood Urea Nitrogen 7mg/dL (8-26) Creatinine 1.1mg/dL (0.7-1.3) Estimated GFR (Cockcroft-Gault) 88.0 Glucose Level 119mg/dL (70-99) Calcium Level 7.7mg/dL (8.5-10.1) Review of Systems Review of Systems denies pain with food intake, but has epigastric/ midabd pain KISHORE ANDERSON MD Sep 10, 2016 14:38
[2016-09-10 15:11] LABS: ALBUMIN 2.8 g/dL (3.4-5.0); DIRECT BILIRUBIN 0.2 mg/dL (0.0-0.2); TOTAL BILIRUBIN 0.8 mg/dL (0.2-1.0); TOTAL PROTEIN 6.1 g/dL (6.4-8.2)
[2016-09-11 03:00] VITALS: BP 116/74
[2016-09-11] MEDS: HYDROCODONE/APAP 5/325MG TABLET. PO PRN ×3 (03:03→16:47)
[2016-09-11 06:15] LABS: ALBUMIN 2.7 g/dL (3.4-5.0); ALBUMIN/GLOBULIN RATIO 0.7 (1.0-1.7); CALCIUM 8.6 mg/dL (8.5-10.1); CREATININE 1.1 mg/dL (0.7-1.3); POTASSIUM 4.5 mmol/L (3.5-5.1); TOTAL BILIRUBIN 0.8 mg/dL (0.2-1.0); TOTAL PROTEIN 6.6 g/dL (6.4-8.2)
[2016-09-11 07:00] VITALS: BP 127/89
[2016-09-11 07:20] LABS: BASO % 0 % (0-3); EOS % 1 % (0-3); HEMATOCRIT 37.5 % (39.0-53.0); LYMPH % 26 % (24-48); MEAN CORPUSCULAR HEMOGLOBIN 28 pg (25-35); MEAN CORPUSCULAR HGB CONC 32 g/dL (31-37); MEAN CORPUSCULAR VOLUME 86 fL (79-100); MONO % 10 % (0-9); NEUT % 63 % (31-73); PLATELET COUNT 115 x10^3/uL (140-400); RED BLOOD COUNT 4.35 x10^6/uL (4.30-5.70); RED CELL DISTRIBUTION WIDTH 15.3 % (11.5-14.5); WHITE BLOOD COUNT 7.6 x10^3/uL (4.0-11.0)
[2016-09-11] MEDS: THIAMINE 100 MG TABLET. PO SCH (07:57)
[2016-09-11] MEDS: FOLIC ACID 1 MG TABLET PO SCH (07:57)
[2016-09-11] MEDS: MULTIVITAMIN with MINERAL TABLET. PO SCH (07:57)
[2016-09-11 11:00] VITALS: BP 138/95
[2016-09-11] MEDS ORDERED: POLYETHYLENE GLYCOL 3350 17 GM PACKET. PO SCH (13:00)
--- NOTE | 2016-09-11 14:56 | PDOC ---
PROGRESS NOTES Chief Complaint Chief Complaint Acute pancreatitis ASSESSMENT AND PLAN: 1. Pancreatitis: acute on chronic, EtOH induced. lipase remains around 6000 , but clinically improving, tolerating food w/o worsening pain. GI following. consider bowel rest if lipase unresponsive. 2. EtOH gastritis: subxyphoid/epigastric pain. 3. EtOH hepatitis: improving. monitor 4. EtOH abuse: W/D prevention, PO vitamins 5. Hypocalcemia: recovered 6. Anemia: stable with mild anemia 7. Pain control: adequate with PO meds 8. Hypertension: by report, but no home meds and nl BPs here. monitor. 9. Hyperlipidemia: on statin 10. Prophylaxis: PPI Vitals Vitals Vital Signs Date Time Temp Pulse Resp B/P Pulse Ox O2 Delivery O2 Flow Rate FiO2 09/11/16 11:20 Room Air 09/11/16 11:00 98.5 87 18 138/95 99 98.5 Physical Exam General: Alert, Oriented X3, Cooperative, No acute distress Heart: Regular rate Lungs: Clear Abdomen: Normal bowel sounds, Other (TTP epigastrium) Extremities: No edema Skin: No rashes Labs LABS Laboratory Tests Test 09/11/16 05:00 White Blood Count 7.6x10^3/uL (4.0-11.0) Red Blood Count 4.35x10^6/uL (4.30-5.70) Hemoglobin 12.0g/dL (13.0-17.5) Hematocrit 37.5% (39.0-53.0) Mean Corpuscular Volume 86fL (79-100) Mean Corpuscular Hemoglobin 28pg (25-35) Mean Corpuscular Hemoglobin Concent 32g/dL (31-37) Red Cell Distribution Width 15.3% (11.5-14.5) Platelet Count 115x10^3/uL (140-400) Neutrophils (%) (Auto) 63% (31-73) Lymphocytes (%) (Auto) 26% (24-48) Monocytes (%) (Auto) 10% (0-9) Eosinophils (%) (Auto) 1% (0-3) Basophils (%) (Auto) 0% (0-3) Neutrophils # (Auto) 4.8x10^3uL (1.8-7.7) Lymphocytes # (Auto) 2.0x10^3/uL (1.0-4.8) Monocytes # (Auto) 0.7x10^3/uL (0.0-1.1) Eosinophils # (Auto) 0.1x10^3/uL (0.0-0.7) Basophils # (Auto) 0.0x10^3/uL (0.0-0.2) Sodium Level 138mmol/L (136-145) Potassium Level 4.5mmol/L (3.5-5.1) Chloride Level 102mmol/L (98-107) Carbon Dioxide Level 29mmol/L (21-32) Anion Gap 7 (6-14) Blood Urea Nitrogen 8mg/dL (8-26) Creatinine 1.1mg/dL (0.7-1.3) Estimated GFR (Cockcroft-Gault) 88.0 BUN/Creatinine Ratio 7 (6-20) Glucose Level 109mg/dL (70-99) Calcium Level 8.6mg/dL (8.5-10.1) Total Bilirubin 0.8mg/dL (0.2-1.0) Aspartate Amino Transf (AST/SGOT) 91U/L (15-37) Alanine Aminotransferase (ALT/SGPT) 100U/L (16-63) Alkaline Phosphatase 74U/L (46-116) Total Protein 6.6g/dL (6.4-8.2) Albumin 2.7g/dL (3.4-5.0) Albumin/Globulin Ratio 0.7 (1.0-1.7) Lipase 6063U/L (73-393) Review of Systems Review of Systems tolerating PO, no worsening pain, but has burning pain constantly in epigastrium KISHORE ANDERSON MD Sep 11, 2016 14:56
[2016-09-11 15:00] VITALS: BP 126/89
[2016-09-11 19:00] VITALS: BP 140/99
[2016-09-11 23:00] VITALS: BP 133/99
[2016-09-12] MEDS: HYDROCODONE/APAP 5/325MG TABLET. PO PRN (02:35)
[2016-09-12 03:00] VITALS: BP 138/107
[2016-09-12 04:02] LABS: BASO % 0 % (0-3); EOS % 3 % (0-3); HEMATOCRIT 38.8 % (39.0-53.0); HEMOGLOBIN 12.4 g/dL (13.0-17.5); LYMPH # 1.9 x10^3/uL (1.0-4.8); LYMPH % 25 % (24-48); MEAN CORPUSCULAR HEMOGLOBIN 28 pg (25-35); MEAN CORPUSCULAR HGB CONC 32 g/dL (31-37); MEAN CORPUSCULAR VOLUME 87 fL (79-100); MONO % 8 % (0-9); NEUT % 63 % (31-73); PLATELET COUNT 119 x10^3/uL (140-400); RED BLOOD COUNT 4.46 x10^6/uL (4.30-5.70); RED CELL DISTRIBUTION WIDTH 15.2 % (11.5-14.5); WHITE BLOOD COUNT 7.6 x10^3/uL (4.0-11.0)
[2016-09-12 04:24] LABS: ALBUMIN 2.9 g/dL (3.4-5.0); ALBUMIN/GLOBULIN RATIO 0.7 (1.0-1.7); CALCIUM 9.3 mg/dL (8.5-10.1); GFR 98.2; POTASSIUM 4.4 mmol/L (3.5-5.1); TOTAL BILIRUBIN 0.5 mg/dL (0.2-1.0); TOTAL PROTEIN 7.3 g/dL (6.4-8.2)
[2016-09-12 07:00] VITALS: BP 149/103
[2016-09-12] MEDS: THIAMINE 100 MG TABLET. PO SCH (08:34)
[2016-09-12] MEDS: MULTIVITAMIN with MINERAL TABLET. PO SCH (08:34)
[2016-09-12] MEDS: FOLIC ACID 1 MG TABLET PO SCH (08:34)
[2016-09-12] MEDS ORDERED: POLYETHYLENE GLYCOL 3350 17 GM PACKET. PO SCH ×2 (09:00→10:00)
[2016-09-12] MEDS ORDERED: SENNOSIDES 8.6 MG TABLET PO PRN (10:00)
[2016-09-12] MEDS ORDERED: MAGNESIUM HYDROXIDE 2,400 MG/30 ML ORAL.SUSP. PO ONE (10:00)
[2016-09-12] MEDS ORDERED: DOCUSATE SODIUM 100 MG CAPSULE PO SCH (10:00)
[2016-09-12] MEDS ORDERED: POLY17PO5 PO (10:27)
[2016-09-12] MEDS ORDERED: DOCU-27 PO (10:27)
[2016-09-12] MEDS ORDERED: FAMO-63 PO (10:28)
--- NOTE | 2016-09-12 10:52 | PDOC ---
Subjective: Subjective: Feeling better, would like to DC. Tolerating PO. Abd pain was previously diffuse and much improved - does still have some epigastric discomfort but feels related to constipation. H/o intermittent constipation, previously untreated. Had BM this morning Objective: Objective: Per RN - some upper abd pain but eating w/o issue, just had BM (but was previously concerned w/ constipation). Vital Signs: Vital Signs Date Time Temp Pulse Resp B/P Pulse Ox O2 Delivery O2 Flow Rate FiO2 09/12/16 07:30 Room Air 09/12/16 07:00 97.9 78 16 149/103 98 97.9 Labs: Laboratory Tests Test 09/12/16 03:37 White Blood Count 7.6x10^3/uL Red Blood Count 4.46x10^6/uL Hemoglobin 12.4g/dL Hematocrit 38.8% Mean Corpuscular Volume 87fL Mean Corpuscular Hemoglobin 28pg Mean Corpuscular Hemoglobin Concent 32g/dL Red Cell Distribution Width 15.2% Platelet Count 119x10^3/uL Neutrophils (%) (Auto) 63% Lymphocytes (%) (Auto) 25% Monocytes (%) (Auto) 8% Eosinophils (%) (Auto) 3% Basophils (%) (Auto) 0% Neutrophils # (Auto) 4.8x10^3uL Lymphocytes # (Auto) 1.9x10^3/uL Monocytes # (Auto) 0.6x10^3/uL Eosinophils # (Auto) 0.2x10^3/uL Basophils # (Auto) 0.0x10^3/uL Sodium Level 139mmol/L Potassium Level 4.4mmol/L Chloride Level 102mmol/L Carbon Dioxide Level 29mmol/L Anion Gap 8 Blood Urea Nitrogen 5mg/dL Creatinine 1.0mg/dL Estimated GFR (Cockcroft-Gault) 98.2 BUN/Creatinine Ratio 5 Glucose Level 122mg/dL Calcium Level 9.3mg/dL Total Bilirubin 0.5mg/dL Aspartate Amino Transf (AST/SGOT) 65U/L Alanine Aminotransferase (ALT/SGPT) 86U/L Alkaline Phosphatase 89U/L Total Protein 7.3g/dL Albumin 2.9g/dL Albumin/Globulin Ratio 0.7 Lipase 2160U/L PE: GEN: NAD, pleasant LUNGS: CTAB anteriorly HEART: RRR ABD: NABS, S/ND, mild epigastric tenderness NEURO/PSYCH: A & O 3 A/P: Acute pancreatitis -lipase improving (6000s to 2000s), LFTs improving -n/v resolved, abd pain improved, tolerating reg diet -s/p cholecystectomy, likely secondary to alcohol, also h/o HLD on statin -no imaging of pancreas this admission, last CT 2014 c/w pancreatitis and fatty liver Constipation - resolving -recalls previously normal colonoscopy in his late 30s -- D/w Dr. Drew. Plans for DC today - okay per GI w/ pain improvement, tolerating PO. Recommend alcohol avoidance. Re: constipation, discussed use of Miralax at home (scheduled or PRN, adjusting based on symptoms. JANES DERAS Sep 12, 2016 10:52
[2016-09-12 11:00] VITALS: BP 138/102
--- NOTE | 2016-09-12 16:33 | PDOC3 ---
Discharge Summary Visit Information Date of Admission: Sep 09, 2016 Date of Discharge: Sep 12, 2016 Admitting Diagnosis: Acute pancreatitis Final Diagnosis 1. Pancreatitis: acute on chronic, EtOH induced. lipase 6000, 2. EtOH gastritis: subxyphoid/epigastric pain. 3. EtOH transaminits 4. EtOH abuse: 5. Hypocalcemia: 6. Anemia: mild 7. Hypertension: 8. Hyperlipidemia: on statin Problems Medical Problems: (1) Acute pancreatitis Status: Acute (2) Pancreatitis Status: Acute Brief Hospital Course Allergies Allergies Coded Allergies Type Severity Reaction Last Updated Verified No Known Drug Allergies 09/04/13 No Vital Signs Vital Signs Date Time Temp Pulse Resp B/P Pulse Ox O2 Delivery O2 Flow Rate FiO2 09/12/16 11:24 96 Room Air 09/12/16 11:00 98.1 89 16 138/102 98.1 Lab Results Laboratory Tests Test 09/11/16 05:00 09/12/16 03:37 White Blood Count 7.6x10^3/uL (4.0-11.0) 7.6x10^3/uL (4.0-11.0) Red Blood Count 4.35x10^6/uL (4.30-5.70) 4.46x10^6/uL (4.30-5.70) Hemoglobin 12.0g/dL (13.0-17.5) 12.4g/dL (13.0-17.5) Hematocrit 37.5% (39.0-53.0) 38.8% (39.0-53.0) Mean Corpuscular Volume 86fL (79-100) 87fL (79-100) Mean Corpuscular Hemoglobin 28pg (25-35) 28pg (25-35) Mean Corpuscular Hemoglobin Concent 32g/dL (31-37) 32g/dL (31-37) Red Cell Distribution Width 15.3% (11.5-14.5) 15.2% (11.5-14.5) Platelet Count 115x10^3/uL (140-400) 119x10^3/uL (140-400) Neutrophils (%) (Auto) 63% (31-73) 63% (31-73) Lymphocytes (%) (Auto) 26% (24-48) 25% (24-48) Monocytes (%) (Auto) 10% (0-9) 8% (0-9) Eosinophils (%) (Auto) 1% (0-3) 3% (0-3) Basophils (%) (Auto) 0% (0-3) 0% (0-3) Neutrophils # (Auto) 4.8x10^3uL (1.8-7.7) 4.8x10^3uL (1.8-7.7) Lymphocytes # (Auto) 2.0x10^3/uL (1.0-4.8) 1.9x10^3/uL (1.0-4.8) Monocytes # (Auto) 0.7x10^3/uL (0.0-1.1) 0.6x10^3/uL (0.0-1.1) Eosinophils # (Auto) 0.1x10^3/uL (0.0-0.7) 0.2x10^3/uL (0.0-0.7) Basophils # (Auto) 0.0x10^3/uL (0.0-0.2) 0.0x10^3/uL (0.0-0.2) Sodium Level 138mmol/L (136-145) 139mmol/L (136-145) Potassium Level 4.5mmol/L (3.5-5.1) 4.4mmol/L (3.5-5.1) Chloride Level 102mmol/L (98-107) 102mmol/L (98-107) Carbon Dioxide Level 29mmol/L (21-32) 29mmol/L (21-32) Anion Gap 7 (6-14) 8 (6-14) Blood Urea Nitrogen 8mg/dL (8-26) 5mg/dL (8-26) Creatinine 1.1mg/dL (0.7-1.3) 1.0mg/dL (0.7-1.3) Estimated GFR (Cockcroft-Gault) 88.0 98.2 BUN/Creatinine Ratio 7 (6-20) 5 (6-20) Glucose Level 109mg/dL (70-99) 122mg/dL (70-99) Calcium Level 8.6mg/dL (8.5-10.1) 9.3mg/dL (8.5-10.1) Total Bilirubin 0.8mg/dL (0.2-1.0) 0.5mg/dL (0.2-1.0) Aspartate Amino Transf (AST/SGOT) 91U/L (15-37) 65U/L (15-37) Alanine Aminotransferase (ALT/SGPT) 100U/L (16-63) 86U/L (16-63) Alkaline Phosphatase 74U/L (46-116) 89U/L (46-116) Total Protein 6.6g/dL (6.4-8.2) 7.3g/dL (6.4-8.2) Albumin 2.7g/dL (3.4-5.0) 2.9g/dL (3.4-5.0) Albumin/Globulin Ratio 0.7 (1.0-1.7) 0.7 (1.0-1.7) Lipase 6063U/L (73-393) 2160U/L (73-393) Laboratory Tests Test 09/12/16 03:37 White Blood Count 7.6x10^3/uL (4.0-11.0) Red Blood Count 4.46x10^6/uL (4.30-5.70) Hemoglobin 12.4g/dL (13.0-17.5) Hematocrit 38.8% (39.0-53.0) Mean Corpuscular Volume 87fL (79-100) Mean Corpuscular Hemoglobin 28pg (25-35) Mean Corpuscular Hemoglobin Concent 32g/dL (31-37) Red Cell Distribution Width 15.2% (11.5-14.5) Platelet Count 119x10^3/uL (140-400) Neutrophils (%) (Auto) 63% (31-73) Lymphocytes (%) (Auto) 25% (24-48) Monocytes (%) (Auto) 8% (0-9) Eosinophils (%) (Auto) 3% (0-3) Basophils (%) (Auto) 0% (0-3) Neutrophils # (Auto) 4.8x10^3uL (1.8-7.7) Lymphocytes # (Auto) 1.9x10^3/uL (1.0-4.8) Monocytes # (Auto) 0.6x10^3/uL (0.0-1.1) Eosinophils # (Auto) 0.2x10^3/uL (0.0-0.7) Basophils # (Auto) 0.0x10^3/uL (0.0-0.2) Sodium Level 139mmol/L (136-145) Potassium Level 4.4mmol/L (3.5-5.1) Chloride Level 102mmol/L (98-107) Carbon Dioxide Level 29mmol/L (21-32) Anion Gap 8 (6-14) Blood Urea Nitrogen 5mg/dL (8-26) Creatinine 1.0mg/dL (0.7-1.3) Estimated GFR (Cockcroft-Gault) 98.2 BUN/Creatinine Ratio 5 (6-20) Glucose Level 122mg/dL (70-99) Calcium Level 9.3mg/dL (8.5-10.1) Total Bilirubin 0.5mg/dL (0.2-1.0) Aspartate Amino Transf (AST/SGOT) 65U/L (15-37) Alanine Aminotransferase (ALT/SGPT) 86U/L (16-63) Alkaline Phosphatase 89U/L (46-116) Total Protein 7.3g/dL (6.4-8.2) Albumin 2.9g/dL (3.4-5.0) Albumin/Globulin Ratio 0.7 (1.0-1.7) Lipase 2160U/L (73-393) Brief Hospital Course Mr. Barcenas is a 46 old -[place] male patient with prior history of cholecystectomy and pancreatitis, presented to the ER with complaints of abdominal pain, nausea, vomiting for 4 days. pt better at 3 days, advance diet, no event Discharge Information Condition at Discharge: Improved Follow Up: Weeks Disposition/Orders: D/C to Home Scheduled Aspirin (Aspirin) 81 MG PO DAILY (Reported) Atorvastatin Calcium (Atorvastatin Calcium) 1 TAB PO DAILY (Reported) Docusate Sodium (Colace) 100 MG PO DAILY Famotidine (Pepcid) 20 MG PO HS Hydrochlorothiazide (Hydrochlorothiazide Tablet ) 25 MG PO DAILY (Reported) Nabumetone (Nabumetone) 500 MG PO DAILY (Reported) Scheduled PRN Polyethylene Glycol 3350 (Miralax) 17 GM PO BID PRN PRN hard stools Patient Instructions Patient Instructions time > 30 min HEMA TEIXEIRA MD Sep 12, 2016 16:33
== END 2016-09-12 14:30 | disposition home or self-care (01) | DRG 440 ==
LOC: ER 08:41 → 4 NORTH 11:50
PROVIDERS: ADMIT Internal Medicine; ATTEND Internal Medicine
DX: K85.20 Alcohol induced acute pancreatitis without necrosis or infection (principal); K75.9 Inflammatory liver disease, unspecified; E83.51 Hypocalcemia; K29.20 Alcoholic gastritis without bleeding; K70.10 Alcoholic hepatitis without ascites; F10.10 Alcohol abuse, uncomplicated; K86.0 Alcohol-induced chronic pancreatitis; E78.00 Pure hypercholesterolemia, unspecified; I87.8 Other specified disorders of veins; K59.00 Constipation, unspecified; D64.9 Anemia, unspecified; I10 Essential (primary) hypertension; E78.5 Hyperlipidemia, unspecified; Z79.82 Long term (current) use of aspirin; Z79.899 Other long term (current) drug therapy; Z90.49 Acquired absence of other specified parts of digestive tract; K86.1 Other chronic pancreatitis; K76.0 Fatty (change of) liver, not elsewhere classified
CPT/HCPCS: 36415; 74022; 80048; 80053; 80076; 81001; 82553; 83690; 84484; 85027; 93005; 94250; 94760; 96374; 96375; J1170; J2405; J3010; J3490; J7030; S0028; 99285-25

== ENCOUNTER 2017-10-05 21:42 | Inpatient (IN) | payer SELFPAY ==
[2017-10-05] MEDS ORDERED: MORPHINE SULFATE 2 MG/ML DISP.SYRIN. IV/SQ (22:30)
[2017-10-05 22:41] LABS: ADD MAN DIFF? NO
[2017-10-05 22:44] LABS: BASO % 1 % (0-3); EOS % 0 % (0-3); HEMATOCRIT 44.6 % (39.0-53.0); LYMPH # 1.2 x10^3/uL (1.0-4.8); LYMPH % 16 % (24-48); MEAN CORPUSCULAR HEMOGLOBIN 28 pg (25-35); MEAN CORPUSCULAR HGB CONC 34 g/dL (31-37); MEAN CORPUSCULAR VOLUME 84 fL (79-100); MONO # 0.3 x10^3/uL (0.0-1.1); MONO % 4 % (0-9); NEUT # 6.2 x10^3uL (1.8-7.7); NEUT % 80 % (31-73); PLATELET COUNT 149 x10^3/uL (140-400); RED BLOOD COUNT 5.29 x10^6/uL (4.30-5.70); RED CELL DISTRIBUTION WIDTH 14.6 % (11.5-14.5); WHITE BLOOD COUNT 7.7 x10^3/uL (4.0-11.0)
[2017-10-05] MEDS: FAMOTIDINE 20 MG/2 ML VIAL IVP (22:48)
[2017-10-05] MEDS: IV NORMAL SALINE 1000ML BAG 1,000 ML IV (22:48)
[2017-10-05] MEDS: ONDANSETRON PF 4 MG/2 ML VIAL. IV (22:49)
[2017-10-05] MEDS: MORPHINE SULFATE 4 MG/ML DISP.SYRIN. IV (22:49)
[2017-10-05 23:03] LABS: INR 1.1 (0.8-1.1); PARTIAL THROMBOPLASTIN TIME 28 SEC (24-38); PROTHROMBIN TIME PATIENT 13.7 SEC (11.7-14.0)
[2017-10-05 23:07] LABS: ALBUMIN 3.8 g/dL (3.4-5.0); ALK PHOS 132 U/L (46-116); BLOOD UREA NITROGEN 13 mg/dL (8-26); CALCIUM 8.3 mg/dL (8.5-10.1); CHLORIDE 101 mmol/L (98-107); CREATININE 1.2 mg/dL (0.7-1.3); DIRECT BILIRUBIN 0.1 mg/dL (0.0-0.2); GFR 79.2; GLUCOSE 205 mg/dL (70-99); POTASSIUM 3.5 mmol/L (3.5-5.1); SODIUM 140 mmol/L (136-145); TOTAL BILIRUBIN 0.8 mg/dL (0.2-1.0); TOTAL PROTEIN 8.1 g/dL (6.4-8.2)
[2017-10-05 23:49] LABS: ALT (SGPT) 301 U/L (16-63); ANION GAP 29 (6-14); AST (SGOT) 615 U/L (15-37); LIPASE 5041 U/L (73-393)
[2017-10-05 23:50] LABS: CARBON DIOXIDE 10 mmol/L (21-32)
[2017-10-06] MEDS ORDERED: DEXTROSE 50% 25 GM / 50ML DISP.SYRIN. IV
[2017-10-06] MEDS ORDERED: CONTRAST GIVEN MC (00:15)
[2017-10-06] MEDS: IOHEXOL 300 MG/ML 100ML VIAL. IV (00:25)
[2017-10-06] MEDS: fentaNYL PF VIAL 100 MCG/2 ML VIAL IV (00:42)
[2017-10-06 01:09] LABS: BILIRUBIN,URINE NEGATIVE (NEG); CLARITY,URINE CLEAR; COLOR,URINE YELLOW; GLUCOSE,URINE NEGATIVE (NEG); NITRITE,URINE NEGATIVE (NEG); PH,URINE 5.5; PROTEIN,URINE 30 mg/dL (NEG-TRACE); UROBILINOGEN,URINE 0.2 mg/dL (0.2 mg/dL)
[2017-10-06 01:26] LABS: BACTERIA,URINE 0 /HPF (0-FEW); HYALINE CASTS, URINE FEW /HPF; RBC,URINE 0 /HPF (0-2); SQUAMOUS EPITHELIAL CELL,UR OCC /LPF; WBC,URINE OCC /HPF (0-4)
[2017-10-06 01:30] LABS: POC GLUCOSE 132 mg/dL (70-99)
[2017-10-06] MEDS: IV NORMAL SALINE 1000ML BAG 1,000 ML IV ×2 (01:40)
[2017-10-06] MEDS: MORPHINE SULFATE 4 MG/ML DISP.SYRIN. IV ×6 (01:43→16:27)
[2017-10-06] MEDS: INSULIN ASPART 300 UNITS/3 ML INSULN.PEN SQ ×3 (08:00→17:00)
[2017-10-06 08:23] LABS: POC GLUCOSE 130 mg/dL (70-99)
[2017-10-06 12:05] LABS: POC GLUCOSE 127 mg/dL (70-99)
[2017-10-06] MEDS: FAMOTIDINE 20 MG/2 ML VIAL IVP ×2 (12:46→21:44)
[2017-10-06] MEDS: MULTIVIT INFUSN,ADULT 4,VIT K 10 ML, THIAMINE 100 MG, FOLIC ACID 1 MG in IV NORMAL SALI... IV (12:47)
[2017-10-06 17:11] LABS: POC GLUCOSE 94 mg/dL (70-99)
[2017-10-07] MEDS: MORPHINE SULFATE 4 MG/ML DISP.SYRIN. IV ×4 (04:07→20:40)
[2017-10-07 06:14] LABS: ADD MAN DIFF? NO
[2017-10-07 06:16] LABS: BASO % 0 % (0-3); EOS % 1 % (0-3); HEMATOCRIT 40.1 % (39.0-53.0); HEMOGLOBIN 13.1 g/dL (13.0-17.5); LYMPH # 1.7 x10^3/uL (1.0-4.8); LYMPH % 26 % (24-48); MEAN CORPUSCULAR HEMOGLOBIN 28 pg (25-35); MEAN CORPUSCULAR HGB CONC 33 g/dL (31-37); MEAN CORPUSCULAR VOLUME 85 fL (79-100); MONO # 0.4 x10^3/uL (0.0-1.1); MONO % 7 % (0-9); NEUT # 4.5 x10^3uL (1.8-7.7); NEUT % 67 % (31-73); PLATELET COUNT 97 x10^3/uL (140-400); RED BLOOD COUNT 4.73 x10^6/uL (4.30-5.70); RED CELL DISTRIBUTION WIDTH 14.2 % (11.5-14.5); WHITE BLOOD COUNT 6.7 x10^3/uL (4.0-11.0)
[2017-10-07 06:35] LABS: ANION GAP 8 (6-14); BLOOD UREA NITROGEN 6 mg/dL (8-26); CALCIUM 7.4 mg/dL (8.5-10.1); CARBON DIOXIDE 27 mmol/L (21-32); CHLORIDE 102 mmol/L (98-107); CREATININE 1.2 mg/dL (0.7-1.3); GFR 79.2; GLUCOSE 94 mg/dL (70-99); POTASSIUM 4.1 mmol/L (3.5-5.1); SODIUM 137 mmol/L (136-145)
[2017-10-07 07:00] LABS: LIPASE 2917 U/L (73-393)
[2017-10-07] MEDS: MULTIVIT INFUSN,ADULT 4,VIT K 10 ML, THIAMINE 100 MG, FOLIC ACID 1 MG in IV NORMAL SALI... IV (08:22)
[2017-10-07] MEDS: FAMOTIDINE 20 MG/2 ML VIAL IVP ×2 (08:22→20:33)
[2017-10-07] MEDS ORDERED: MULTIVIT INFUSN,ADULT 4,VIT K 10 ML, THIAMINE 100 MG, FOLIC ACID 1 MG in IV NORMAL SALI... IV (09:00)
[2017-10-07] MEDS: ONDANSETRON PF 4 MG/2 ML VIAL. IV (20:37)
[2017-10-08 00:07] LABS: HCV ANTIBODY <0.1 s/co ratio (0.0-0.9); HEP A IGM ABDY Negative (Negative); HEP B SURFACE AG Negative (Negative)
[2017-10-08] MEDS: POLYETHYLENE GLYCOL 3350 17 GM PACKET. PO (04:24)
[2017-10-08 07:38] LABS: ADD MAN DIFF? NO
[2017-10-08 07:59] LABS: ANION GAP 5 (6-14); BLOOD UREA NITROGEN 3 mg/dL (8-26); CARBON DIOXIDE 30 mmol/L (21-32); CHLORIDE 102 mmol/L (98-107); CREATININE 1.1 mg/dL (0.7-1.3); GFR 87.6; GLUCOSE 115 mg/dL (70-99); POTASSIUM 3.8 mmol/L (3.5-5.1); SODIUM 137 mmol/L (136-145)
[2017-10-08 08:01] LABS: BASO % 0 % (0-3); EOS # 0.1 x10^3/uL (0.0-0.7); EOS % 1 % (0-3); HEMATOCRIT 38.3 % (39.0-53.0); HEMOGLOBIN 12.4 g/dL (13.0-17.5); LYMPH # 1.3 x10^3/uL (1.0-4.8); LYMPH % 23 % (24-48); MEAN CORPUSCULAR HEMOGLOBIN 28 pg (25-35); MEAN CORPUSCULAR HGB CONC 33 g/dL (31-37); MEAN CORPUSCULAR VOLUME 86 fL (79-100); MONO # 0.6 x10^3/uL (0.0-1.1); MONO % 11 % (0-9); NEUT # 3.8 x10^3uL (1.8-7.7); NEUT % 65 % (31-73); PLATELET COUNT 89 x10^3/uL (140-400); RED BLOOD COUNT 4.46 x10^6/uL (4.30-5.70); RED CELL DISTRIBUTION WIDTH 14.6 % (11.5-14.5); WHITE BLOOD COUNT 5.8 x10^3/uL (4.0-11.0)
[2017-10-08 08:28] LABS: LIPASE 2855 U/L (73-393)
[2017-10-08] MEDS: FAMOTIDINE 20 MG/2 ML VIAL IVP (08:47)
[2017-10-08] MEDS: MULTIVIT INFUSN,ADULT 4,VIT K 10 ML, THIAMINE 100 MG, FOLIC ACID 1 MG in IV NORMAL SALI... IV (08:48)
[2017-10-08] MEDS: BISACODYL 10 MG SUPP.RECT. PR (10:47)
[2017-10-08] MEDS: DOCUSATE SODIUM 100 MG CAPSULE. PO (10:47)
[2017-10-08] MEDS: MORPHINE SULFATE 4 MG/ML DISP.SYRIN. IV (10:48)
[2017-10-08] MEDS ORDERED: HYDROcodone/APAP 10/325 1 TAB TABLET PO (19:00)
[2017-10-08] MEDS: MAGNESIUM CITRATE 296 ML SOLUTION. PO (20:09)
[2017-10-08] MEDS ORDERED: LORazepam 1 MG TABLET PO (20:15)
[2017-10-08] MEDS: FAMOTIDINE 20 MG TABLET. PO (20:16)
[2017-10-08] MEDS: HYDROcodone/APAP 5/325MG 1 TAB TABLET PO (20:17)
[2017-10-09] MEDS: HYDROcodone/APAP 5/325MG 1 TAB TABLET PO ×3 (00:47→09:17)
[2017-10-09] MEDS: FAMOTIDINE 20 MG TABLET. PO (09:17)
[2017-10-09] MEDS: DOCUSATE SODIUM 100 MG CAPSULE. PO (09:17)
[2017-10-09 09:52] LABS: ADD MAN DIFF? NO
[2017-10-09 10:09] LABS: BASO % 0 % (0-3); EOS # 0.2 x10^3/uL (0.0-0.7); EOS % 3 % (0-3); HEMATOCRIT 37.2 % (39.0-53.0); HEMOGLOBIN 11.9 g/dL (13.0-17.5); LYMPH # 1.5 x10^3/uL (1.0-4.8); LYMPH % 30 % (24-48); MEAN CORPUSCULAR HEMOGLOBIN 28 pg (25-35); MEAN CORPUSCULAR HGB CONC 32 g/dL (31-37); MEAN CORPUSCULAR VOLUME 86 fL (79-100); MONO # 0.6 x10^3/uL (0.0-1.1); MONO % 12 % (0-9); NEUT # 2.7 x10^3uL (1.8-7.7); NEUT % 55 % (31-73); PLATELET COUNT 104 x10^3/uL (140-400); RED CELL DISTRIBUTION WIDTH 14.3 % (11.5-14.5); WHITE BLOOD COUNT 4.9 x10^3/uL (4.0-11.0)
[2017-10-09 10:10] LABS: ANION GAP 7 (6-14); BLOOD UREA NITROGEN 4 mg/dL (8-26); CALCIUM 8.1 mg/dL (8.5-10.1); CARBON DIOXIDE 29 mmol/L (21-32); CHLORIDE 106 mmol/L (98-107); CREATININE 0.9 mg/dL (0.7-1.3); GFR 110.4; GLUCOSE 120 mg/dL (70-99); POTASSIUM 3.4 mmol/L (3.5-5.1); SODIUM 142 mmol/L (136-145)
[2017-10-09 10:31] LABS: LIPASE 4092 U/L (73-393)
== END 2017-10-09 15:43 | disposition home or self-care (01) | DRG 440 ==
LOC: ER 21:42 → 5 SOUTH 10-06 00:07
DX: K85.90 Acute pancreatitis without necrosis or infection, unspecified (principal); R56.9 Unspecified convulsions; K76.0 Fatty (change of) liver, not elsewhere classified; E78.00 Pure hypercholesterolemia, unspecified; E78.5 Hyperlipidemia, unspecified; F10.10 Alcohol abuse, uncomplicated; I10 Essential (primary) hypertension; K57.90 Diverticulosis of intestine, part unspecified, without perforation or abscess without bleeding; R73.9 Hyperglycemia, unspecified; Z83.3 Family history of diabetes mellitus; Z87.891 Personal history of nicotine dependence; Z90.49 Acquired absence of other specified parts of digestive tract
CPT/HCPCS: 36415; 74177; 80048; 80074; 80076; 81001; 82962; 83690; 85025; 85610; 85730; 96361; 96374; 96375; 99285; 99285-25; J1815; J2270; J2405; J3010; J7030; Q9967; S0028